=== PATIENT | male | born 1945 | race Caucasian/White ===

== ENCOUNTER → 2020-03-20 | Outpatient (CLI) | payer MEDICARE ==
--- NOTE | 2020-03-20 11:45 | KCIC ---
CERVICAL SPINE WO CONTRAST DATE: 03/20/2020 10:15 AM INDICATION: Cervical stenosis. New onset of BUE numbness after a fell 10 days ago. TECHNIQUE: Multiplanar multisequence magnetic resonance imaging of the cervical spine was performed without administration of intravenous contrast using the standard cervical spine protocol. COMPARISON: None. FINDINGS: The cervical spine is normally aligned. Partial osseous fusion of C1 and C2. No acute fracture. Mild multilevel degenerative disc desiccation and disc height loss. No marrow replacing process to suggest malignancy. Ill-defined T2/STIR hyperintense spinal cord signal at C3-4. On the limited views of the cranial cavity and brain, the cerebellum and klaudia have normal morphology and signal characteristics. No Chiari malformation. No soft tissue abnormality. Normal signal voids are present in the vertebral arteries. C2-3: Moderate facet arthropathy. Moderate severe left neural foraminal narrowing. No spinal canal stenosis. C3-4: Disc osteophyte complex. Uncovertebral hypertrophy. Severe right and mild left facet arthropathy. Ligamentum flavum thickening. Severe spinal canal stenosis. Severe neuroforaminal narrowing. C4-5: Disc osteophyte complex. Uncovertebral hypertrophy. Severe right facet arthropathy with ankylosis across the facet joint. Moderate left facet arthropathy. Moderate right and severe left neural foraminal narrowing. No spinal canal stenosis. C5-6: Disc osteophyte complex. Uncovertebral hypertrophy. Severe facet arthropathy. Ligamentum flavum thickening. Moderate spinal canal stenosis. Mild right and severe left neural foraminal narrowing. C6-7: Disc osteophyte complex. Uncovertebral hypertrophy. Severe facet arthropathy. Moderate bilateral neural foraminal narrowing. No spinal canal stenosis. C7-T1: Disc osteophyte complex. Uncovertebral hypertrophy. Moderate facet arthropathy. Mild neural foraminal narrowing. Mild spinal canal stenosis. IMPRESSION: Severe spinal canal stenosis at C3-4 with abnormal spinal cord signal, likely representing edema and/or myelomalacia. Advanced degenerative changes at the remaining levels as detailed above. Findings were discussed with nurse Lomeli at Dr. Garcia's office at 11:40 AM on 03/20/2020 FOR INTERNAL CODING PURPOSES RESULT CODE: (C) Electronically signed by: Brandt Beard MD (03/20/2020 11:41 AM) [id number]
== END | disposition home or self-care (01) ==
LOC: KCIC MRI 09:21
PROVIDERS: ATTEND Neurological Surgery
DX: M47.813 Spondylosis without myelopathy or radiculopathy, cervicothoracic region (principal); M50.31 Other cervical disc degeneration, high cervical region; M25.78 Osteophyte, vertebrae; M48.03 Spinal stenosis, cervicothoracic region
CPT/HCPCS: 72141

== ENCOUNTER → 2020-04-06 | Outpatient (CLI) | payer MEDICARE ==
[~2020-04-06] MED LIST: ASPI-630 PO; CETI10TA16 PO; ESOM40CA PO; GLIM1TAB PO; HYDR-2761 PO; INFL100V IV; LEFL10TA13 PO; LISI-130 PO; METF10007 PO; METH454P2 PO; METH750T2 PO; MULT-245 PO; OMEG100021 PO
[2020-04-06 16:25] LABS: BASO # 0.1 x10^3/uL (0.0-0.2); BASO % 1 % (0-3); EOS # 0.2 x10^3/uL (0.0-0.7); EOS % 3 % (0-3); HEMATOCRIT 42.7 % (39.0-53.0); HEMOGLOBIN 14.6 g/dL (13.0-17.5); LYMPH # 1.6 x10^3/uL (1.0-4.8); LYMPH % 23 % (24-48); MEAN CORPUSCULAR HEMOGLOBIN 29 pg (25-35); MEAN CORPUSCULAR HGB CONC 34 g/dL (31-37); MEAN CORPUSCULAR VOLUME 85 fL (79-100); MONO # 0.9 x10^3/uL (0.0-1.1); MONO % 13 % (0-9); NEUT # 4.1 x10^3/uL (1.8-7.7); NEUT % 60 % (31-73); PLATELET COUNT 203 x10^3/uL (140-400); RED CELL DISTRIBUTION WIDTH 14.6 % (11.5-14.5); WHITE BLOOD COUNT 6.9 x10^3/uL (4.0-11.0)
[2020-04-06 16:50] LABS: ALBUMIN 3.8 g/dL (3.4-5.0); ALBUMIN/GLOBULIN RATIO 0.9 (1.0-1.7); CALCIUM 9.1 mg/dL (8.5-10.1); CREATININE 0.8 mg/dL (0.7-1.3); POTASSIUM 4.3 mmol/L (3.5-5.1); TOTAL BILIRUBIN 0.4 mg/dL (0.2-1.0); TOTAL PROTEIN 8.1 g/dL (6.4-8.2)
[2020-04-07 01:09] LABS: HEMOGLOBIN A1C 5.9 % (4.8-5.6)
== END | disposition home or self-care (01) ==
LOC: SURGPAT 13:15
PROVIDERS: ATTEND Neurological Surgery
DX: Z01.812 Encounter for preprocedural laboratory examination (principal); Z11.59 Encounter for screening for other viral diseases; M48.02 Spinal stenosis, cervical region; Z88.8 Allergy status to other drugs, medicaments and biological substances; M47.12 Other spondylosis with myelopathy, cervical region; E11.9 Type 2 diabetes mellitus without complications
CPT/HCPCS: 36415; 80053; 83036; 85025; 87641; U0003

== ENCOUNTER 2020-04-10 07:00 | Inpatient (IN) | payer MEDICARE ==
--- NOTE | 2020-04-09 15:30 | PREOP HP ---
DATE OF SERVICE: 04/10/2020 PREOPERATIVE HISTORY AND PHYSICAL DATE OF SURGERY: 04/10/2020. HISTORY OF PRESENT ILLNESS: The patient is a pleasant 74-year-old, who presented with problems in his lower back and also demonstrated unsteadiness as well as numbness in his arms and hands. He reported falls. The problem began about 2 months ago and is becoming more and more severe. Standing and walking increases it and states that he is using a cane and/or a walker to help him. When I saw him last, I ordered a cervical MRI scan. PAST MEDICAL HISTORY: Arthritis, artificial knee, hypertension, rheumatoid arthritis, diabetes. PAST SURGICAL HISTORY: Lumbar surgery L4-L5, 08/2000; knee replacement, 2004. FAMILY HISTORY: Brain tumor, cancer, diabetes, hypertension, spine problems. SOCIAL HISTORY: Retired. . Walks for exercise. Denies tobacco use. Denies alcohol or tobacco use. Drinks coffee daily. ALLERGIES: PREDNISONE. CURRENT MEDICATIONS: Amaryl, aspirin, cetirizine, fiber, fish oil, leflunomide, lisinopril, metformin, multivitamin, Nexium, red yeast rice, Remicade, ibuprofen. REVIEW OF SYSTEMS: A 12-point review of systems was obtained and is noncontributory except for that mentioned above. PHYSICAL EXAMINATION: NEUROSURGERY EXAMINATION: GENERAL APPEARANCE: Alert, pleasant, no acute distress. HEAD: Normocephalic and atraumatic. SKIN: Warm and dry. NECK AND THYROID: Zphi-zl-dlwcqltn tenderness with palpation of posterior cervical region. SKIN: Warm and dry. MUSCULOSKELETAL: Cervical paraspinal muscle bulk is normal, restricted range of motion of the cervical spine, normal range of motion of the upper extremities bilaterally. EXTREMITIES: No clubbing, cyanosis, or edema. NEUROLOGIC: Alert and oriented x 3, normal recent and remote memory, strength 5/5 in bilateral upper extremities, unsteady gait. IMAGING: I reviewed a cervical MRI scan from 03/20/2020. On that study, the principal abnormalities are at C3-C4. There is severe spinal stenosis. There is more moderate stenosis present at C5-C6. There does appear to be abnormal signal within the spinal cord, suggesting edema or myelomalacia at C3-C4. ASSESSMENT: Spinal stenosis, cervical region. PLAN: The patient is developing a cervical myelopathy. He has severe spinal canal stenosis at C3-C4. I recommended an anterior cervical discectomy and fusion. I discussed this with him and his and that the problems as well as the surgery and expected postoperative course. I outlined the risks of anterior neck surgery and sequelae of injury to soft tissue structures. I spoke about the expected postoperative course. He understands. He would like to go ahead. We will make the arrangements. GAEL KELLY MD DR: ANOOP/doug JOB#: [id number] / [id number] JULIA
[2020-04-10] VITALS (9 sets, daily range): BP systolic 124–168; BP diastolic 56–80
[~2020-04-10] VITALS: Ht 182.9 cm; Wt 85.0 kg
[~2020-04-10 07:00] MED LIST changes: +BACITRACIN 50,000 UNIT in IV NORMAL SALINE 1000ML BAG 1,000 ML IRR ONE; -HYDR-2761 PO; +IV RINGERS,LACTATED 1000ML 1,000 ML IV SCH; -METH750T2 PO
[2020-04-10] MEDS ORDERED: BUPIVACAINE-EPI 0.5%-1:200000 MPF 30 ML VIAL. ONE (07:21)
[2020-04-10] MEDS ORDERED: GELATIN SPONGE SIZE 100. ONE (07:21)
[2020-04-10] MEDS ORDERED: THROMBIN TOPICAL 20,000 UNIT SPRAY.SYRN KIT TP ONE (07:22)
[2020-04-10] MEDS ORDERED: PHENYLEPHRINE 10 MG/ML VIAL. ONE ×3 (07:41→08:51)
[2020-04-10] MEDS ORDERED: DEXAMETHASONE SOD PHOS 4 MG/ML VIAL ONE ×2 (07:41→09:20)
[2020-04-10] MEDS ORDERED: PROPOFOL 50 ML IV ONE ×2 (07:41→09:27)
[2020-04-10] MEDS ORDERED: PROPOFOL 10 MG/ML (20ML) VIAL. IV ONE (07:41)
[2020-04-10] MEDS ORDERED: SUCCINYLCHOLINE 200 MG/10 ML VIAL. ONE (07:41)
[2020-04-10] MEDS ORDERED: LIDOCAINE 2% PF 5 ML VIAL. ONE (07:41)
[2020-04-10] MEDS ORDERED: ONDANSETRON PF 4 MG/2 ML VIAL. ONE (07:41)
[2020-04-10] MEDS ORDERED: VANCOMYCIN 1GM IVPB FOR OMNI 250 ML IV ONE (07:45)
[2020-04-10] MEDS: INSULIN LISPRO 100 UNIT/ML 3ML VIAL for OP,RR ONLY. SQ PRN ×2 (07:46→12:19)
[2020-04-10] MEDS ORDERED: 0.9 % SODIUM CHLORIDE 20 ML VIAL. IJ ONE ×2 (07:48)
[2020-04-10] MEDS ORDERED: REMIFENTANIL 2 MG VIAL. IV ONE (07:51)
[2020-04-10] MEDS ORDERED: INSULIN LISPRO 100 UNIT/ML 3ML VIAL for OP,RR ONLY. SQ ONE (08:00)
[2020-04-10] MEDS ORDERED: MIDAZOLAM HCL/PF 2 MG/2 ML VIAL. ONE (08:14)
[2020-04-10] MEDS ORDERED: KETAMINE HCL IN NACL, ISO-OSM 50 MG/5 ML SYRINGE ONE (08:50)
[2020-04-10] MEDS ORDERED: ePHEDrine PF IN SALINE 50 MG/10 ML SYRINGE. IV ONE (09:10)
[2020-04-10] MEDS ORDERED: DESFLURANE > 120 MINUTES IH ONE (09:20)
[2020-04-10] MEDS ORDERED: fentaNYL PF VIAL 100 MCG/2 ML VIAL ONE (11:42)
[2020-04-10] MEDS: POTASSIUM CL 20MEQ-0.45% NACL 1,000 ML IV SCH (11:56)
[2020-04-10] MEDS ORDERED: MAGNESIUM HYDROXIDE 2,400 MG/30 ML ORAL.SUSP. PO PRN (12:00)
[2020-04-10] MEDS ORDERED: METHOCARBAMOL 750 MG TABLET PO PRN (12:00)
[2020-04-10] MEDS ORDERED: MORPHINE SULFATE 2 MG/ML VIAL. IV PRN (12:00)
[2020-04-10] MEDS ORDERED: ONDANSETRON PF 4 MG/2 ML VIAL. IVP PRN (12:00)
[2020-04-10] MEDS ORDERED: HYDROmorphone 2 MG/ML VIAL IV PRN (12:00)
[2020-04-10] MEDS ORDERED: 0.9 % SODIUM CHLORIDE 10 ML DISP.SYRIN. IV PRN (12:00)
[2020-04-10] MEDS ORDERED: DEXTROSE 50% 25 GM / 50ML DISP.SYRIN. IV PRN (12:00)
[2020-04-10] MEDS ORDERED: CALCIUM CARBONATE 500 MG TAB.CHEW PO PRN (12:00)
[2020-04-10] MEDS ORDERED: NALOXONE 0.4 MG/ML VIAL. IV PRN (12:00)
[2020-04-10] MEDS ORDERED: diphenhydrAMINE HCL 25 MG CAPSULE PO PRN (12:00)
[2020-04-10] MEDS ORDERED: fentaNYL PF VIAL 100 MCG/2 ML VIAL IV PRN ×2 (12:00)
[2020-04-10] MEDS ORDERED: fentaNYL PF VIAL 100 MCG/2 ML VIAL IVP PRN (12:00)
[2020-04-10] MEDS ORDERED: ACETAMINOPHEN 325 MG TABLET. PO PRN (12:00)
[2020-04-10] MEDS ORDERED: HYDROcodone/APAP 5/325MG 1 TAB TABLET PO PRN ×2 (12:00)
[2020-04-10] MEDS ORDERED: MAG HYDROX/ALUMINUM HYD/SIMETH 30 ML ORAL.SUSP PO PRN (12:00)
[2020-04-10] MEDS ORDERED: PROCHLORPERAZINE 10 MG/2 ML VIAL. IV PRN (12:00)
--- NOTE | 2020-04-10 12:15 | OP ---
DATE OF SURGERY: 04/10/2020 PREOPERATIVE DIAGNOSES: Severe cervical spinal stenosis, cervical myelopathy, C3-C4. POSTOPERATIVE DIAGNOSIS: Severe cervical spinal stenosis, cervical myelopathy, C3-C4. OPERATION PERFORMED: Anterior cervical microdiscectomy, C3-C4; anterior cervical interbody fusion, C3-C4 with allograft and autograft bone; anterior cervical plate, C3-C4. The operation was done with multimodality monitoring, including EMG, SSEP, fluoroscopy, microscopic dissection as well as NIMS monitoring. SURGEON: Yaniv Kelly M.D. JUNK DEALER: MUSTAPHA Courtney, assisted with the surgery. She assisted with the exposure, the microdiscectomy as well as the closure. OPERATIVE INDICATIONS: The patient is a very pleasant 74-year-old man, who has developed intractable pain in his neck, shoulders and arms along with clumsiness and loss of function in his hands and unsteadiness of gait on imaging studies. He did have stenosis in the mid and lower cervical spine, but there was extremely severe stenosis at C3-C4. I felt that that area best be treated with an anterior cervical microdiscectomy and fusion. I spoke with him about the surgery and risks. He understood the surgery. He understood the technique. He understood the expected postoperative course. He wished to go ahead. DESCRIPTION OF PROCEDURE: Following general endotracheal anesthesia, the patient was positioned supine on the operating room table. The anterior cervical region was prepped and draped in the standard fashion. NATHAN hose and AV impulse boots were applied for DVT prophylaxis. A microscope was draped. Fluoroscopy was draped and brought into field. Monitoring was established. Ancef 2 grams was given about 30 minutes prior to surgery using fluoroscopic guidance. An incision was made from the midline around to the right side and a skin crease. I dissected down through skin and subcutaneous tissue. I dissected sharply through the platysma and then around the medial aspect of the sternocleidomastoid and carotid artery sheath down the anterior cervical vertebral bodies. I reflected the trachea and esophagus contralaterally. I placed a cervical disc retractors, wedged in the longus colli muscle. I placed 14-mm pins in C3 and C4, distracted the disc space and I confirmed my position fluoroscopically. I brought the microscope during this time. The remainder of the surgery done with the microscope using microscopic technique. I incised the anterior annulus. I performed discectomy with pituitary rongeurs. I drilled away some of the large bone spurring anteriorly and then removed the disc and drilled the posterior spurring. The disc immediately began to bulge back into the exposure after I opened the ligament. I worked inferiorly and drilled away the superior portion of the C4 posteriorly to allow excellent access to the disc, which I then in a piecemeal fashion removed. I opened the ligament widely bilaterally, I assured myself that the foramina were open. I worked carefully and scraped the cartilaginous endplate. I had an excellent decompression. I placed small pieces of Gelfoam in each lateral gutter, but hemostasis was perfect. I irrigated with copiously, I measured and placed an 8-mm interbody fusion cage, which was packed with allograft and autograft bone. I placed an anterior 12-mm plate using the [employer] system and four 14-mm screws. I removed the retractors. I Valsalva'd the patient. I assured myself of perfect hemostasis. I did take fluoroscopic images, which I felt were good. I irrigated again. I closed the platysma with absorbable suture, subcutaneous tissue as well I closed with interrupted absorbable sutures and skin was closed with a 4-0 subcuticular stitch. The operation went very well and the patient awakened uneventfully and taken to recovery room in excellent condition. I was quite pleased with the surgery. YANIV KELLY MD DR: ANOOP/doug JOB#: [id number] / [id number] JULIA
--- NOTE | 2020-04-10 12:55 | NUR ---
ARRIVED TO UNIT BY BED FROM PACU. ALERT AND ORIENTED X'S 4. NO C/O PAIN. DRESSING ANTERIOR NECK IS INTACT WITH SOME SHADOWING AND WITH SOFT COLLAR. IVF'S INTACT AND INFUSING. NATHAN'S AND ALIX'S ON BILATERALLY. MOVES ALL EXTREMITIES WITH NO PAIN OR NUMBNESS. ORIENTED TO ROOM AND CONTROLS. SIDE RAILS UP X'S 2 WITH CALL LIGHT IN REACH. AT BEDSIDE. CONT. MONITOR.
[2020-04-10] MEDS: MULTIVITAMIN with MINERAL TABLET. PO SCH (14:00)
[2020-04-10] MEDS: OMEGA-3 FATTY ACIDS/FISH OIL 1,000 MG CAPSULE. PO SCH (14:00)
[2020-04-10] MEDS: LISINOPRIL 20 MG TABLET PO SCH (14:59)
[2020-04-10] MEDS: ASPIRIN CHEWABLE 81 MG TABLET. PO SCH (14:59)
[2020-04-10] MEDS: LEFLUNOMIDE 10 MG TABLET. PO SCH (14:59)
[2020-04-10] MEDS: CETIRIZINE HCL 10 MG TABLET. PO SCH (15:00)
[2020-04-10] MEDS: PANTOPRAZOLE 40 MG TABLET.DR. PO SCH (17:44)
[2020-04-10] MEDS: metFORMIN 500 MG TABLET PO SCH (17:44)
[2020-04-10] MEDS: GLIMEPIRIDE 2 MG TABLET. PO SCH (17:44)
[2020-04-10] MEDS: ceFAZolin SODIUM IV Push 1 GM VIAL. IVP SCH ×2 (17:45→21:36)
[2020-04-10] MEDS: DOCUSATE SODIUM 100 MG CAPSULE. PO SCH (21:37)
[2020-04-11] MEDS: POTASSIUM CL 20MEQ-0.45% NACL 1,000 ML IV SCH (01:16)
[2020-04-11 03:00] VITALS: BP 135/61
[2020-04-11] MEDS: ceFAZolin SODIUM IV Push 1 GM VIAL. IVP SCH (06:06)
[2020-04-11] MEDS: PANTOPRAZOLE 40 MG TABLET.DR. PO SCH (06:06)
[2020-04-11 07:00] VITALS: BP 130/64
[2020-04-11] MEDS: ASPIRIN CHEWABLE 81 MG TABLET. PO SCH (08:52)
[2020-04-11] MEDS: metFORMIN 500 MG TABLET PO SCH (08:52)
[2020-04-11] MEDS: OMEGA-3 FATTY ACIDS/FISH OIL 1,000 MG CAPSULE. PO SCH (08:53)
[2020-04-11] MEDS: LISINOPRIL 20 MG TABLET PO SCH (08:53)
[2020-04-11] MEDS: MULTIVITAMIN with MINERAL TABLET. PO SCH (08:53)
[2020-04-11] MEDS: CETIRIZINE HCL 10 MG TABLET. PO SCH (08:53)
[2020-04-11] MEDS: GLIMEPIRIDE 2 MG TABLET. PO SCH (08:54)
[2020-04-11] MEDS: LEFLUNOMIDE 10 MG TABLET. PO SCH (08:55)
[2020-04-11] MEDS: DOCUSATE SODIUM 100 MG CAPSULE. PO SCH (09:00)
[2020-04-11] MEDS ORDERED: HYDR-2761 PO (10:34)
[2020-04-11] MEDS ORDERED: METH750T2 PO (10:34)
--- NOTE | 2020-04-11 10:36 | DISCH ---
DISCHARGE INSTRUCTIONS Condition on Discharge Condition on Discharge: Stable Activity After Discharge Activity Instructions for Disc: Activity as tolerated, Avoid exertion Other activity instructions: soft collar for comfort Bathing Instructions: Shower-keep dressing dry Lifting Instructions after Dis: No heavy lifting, No pulling or pushing, Do not lift >10 pounds Driving Instructions after Dis: Do not drive Diet after Discharge Additional Diet Restrictions: resume home diet, soft Wound Incision Care Wound/Incision Care: Ice to area for comfort Other wound/incision instructi: may remove dressing in 48 hours, no soaking Contacting the DRZane after DC Call your doctor for: Concerns you may have Follow-Up Follow up with: Dr. Kelly's nurse in 2 weeks [phone] GAEL KELLY MD Apr 11, 2020 10:36
[2020-04-11 11:00] VITALS: BP 132/58
[2020-04-11] MEDS ORDERED: PSYLLIUM HUSK (SUGAR FREE) 1 PKT PACKET PO SCH (21:00)
--- NOTE | 2020-04-13 19:07 | PATHOLOGY ---
[facility] Accession Number: [id number] . 01 Material submitted: . vertebral column - CERVICAL DISC . 01 Clinical history: . Cervical stenosis; spondylosis with myelopathy . 02 Diagnosis: Segments of cartilaginous tissue and bone, cervical disc: - Degenerative changes of cartilaginous tissue. . (JPM:mm; 04/13/2020) [facility] 04/13/2020 1759 Local . 02 Comment: There is no evidence of an acute inflammatory process or malignancy. . (JPM:mm; 04/13/2020) . 02 Electronically signed: . Rusty Graves MD, Pathologist NPI- [id number] . 01 Gross description: . The specimen is received in formalin, labeled "Melecio Nash, cervical disc". Received are multiple segments of pink-knight fibrous, gritty tissue admixed with minute fragments of bone measuring 3.8 x 2.2 x 0.5 cm in aggregate dimensions. The specimen is submitted representatively in cassette A1, following light decalcification. ([facility]; 04/10/2020) [facility] 04/10/2020 1652 Local . 02 Pathologist provided ICD-10: M99.71, M47.10 . 02 CPT . 774936, 113183 Specimen Comment: A courtesy copy of this report has been sent to [phone] Specimen Comment: [id number] Specimen Comment: Report sent to / DR SABILLON Performed at: 01 [facility] [address], [place], [place] [id number] MD Samy Dominguez MD Phone: [phone] Performed at: 02 [facility] [address] [place], [place] [id number] MD Rusty Graves MD Phone: [phone]
== END 2020-04-11 12:25 | disposition home or self-care (01) | DRG 472 ==
LOC: OPSVCIP 07:00 → 4 NORTH 12:57
PROVIDERS: ADMIT Neurological Surgery; ATTEND Neurological Surgery
PROC: 0RB30ZZ Excision of Cervical Vertebral Disc, Open Approach (ICD-10-PCS; 2020-04-10)
PROC: 4A11X4G Monitoring of Peripheral Nervous Electrical Activity, Intraoperative, External Approach (ICD-10-PCS; 2020-04-10)
PROC: 00NW0ZZ Release Cervical Spinal Cord, Open Approach (ICD-10-PCS; 2020-04-10)
PROC: 0RG10A0 Fusion of Cervical Vertebral Joint with Interbody Fusion Device, Anterior Approach, Anterior Column, Open Approach (ICD-10-PCS; principal; 2020-04-10 08:30)
DX: M48.02 Spinal stenosis, cervical region (principal); G99.2 Myelopathy in diseases classified elsewhere; E11.9 Type 2 diabetes mellitus without complications; I10 Essential (primary) hypertension; M06.9 Rheumatoid arthritis, unspecified; Z96.659 Presence of unspecified artificial knee joint; Z82.49 Family history of ischemic heart disease and other diseases of the circulatory system; Z83.3 Family history of diabetes mellitus; Z88.8 Allergy status to other drugs, medicaments and biological substances
CPT/HCPCS: 76000; 82962; 88304; 88311; A7015; C1713; J0330; J0690; J1100; J1815; J2250; J2370; J2405; J2704; J3010; J7030; J7120; 97116-GP; C1776; G0378

== ENCOUNTER → 2020-06-09 | Outpatient (CLI) | payer MEDICARE ==
[~2020-06-09] MED LIST changes: -BACITRACIN 50,000 UNIT in IV NORMAL SALINE 1000ML BAG 1,000 ML IRR ONE; +HYDR-2761 PO; -IV RINGERS,LACTATED 1000ML 1,000 ML IV SCH; +METH750T2 PO
--- NOTE | 2020-06-09 15:17 | KCIC ---
LUMBAR SPINE 2-3V History: Lumbar stenosis, bilateral leg weakness and numbness, recent fall Comparison: None. Findings: 2 views of the lumbar spine are submitted. There is intact posterolateral fusion hardware at L3-4 at which there are bilateral pedicle screws attached to vertical rods, also horizontal bar. Lumbar vertebral body stature is maintained. There is very mild grade 1 anterior spondylolisthesis L4-5. There is fairly severe degenerative disc disease at L4-5 and to a somewhat lesser degree at L5-S1, also spondylosis greatest of these the same levels. There is mild spondylosis at L2-3. There is multilevel lumbar facet degenerative change, also likely posterior arthrodesis L3-4. There is also spondylosis of visualized inferior thoracic levels. There is very mild lumbar dextroscoliosis. There is likely small right renal calculus. There is scattered plaque of the abdominal aorta. Impression: 1. There is intact posterolateral fusion hardware L3-4. There is degenerative disc disease and spondylosis greatest at L4-5 and L5-S1. There is multilevel lumbar facet degenerative change. 2. There is likely small right renal calculus. Electronically signed by: Brandt Clayton MD (06/09/2020 3:15 PM) [id number]
== END ==
LOC: KCIC 14:39
PROVIDERS: ATTEND Neurological Surgery
DX: M47.817 Spondylosis without myelopathy or radiculopathy, lumbosacral region (principal); M51.37 Other intervertebral disc degeneration, lumbosacral region; M43.26 Fusion of spine, lumbar region; I70.0 Atherosclerosis of aorta; M48.061 Spinal stenosis, lumbar region without neurogenic claudication
CPT/HCPCS: 72100

== ENCOUNTER → 2020-07-06 | Outpatient (CLI) | payer MEDICARE ==
[~2020-07-06] MED LIST changes: +DOCU-153 PO; +LEFL10TA14 PO; +OXYC1TAB15 PO
[2020-07-06 11:05] LABS: BASO # 0.1 x10^3/uL (0.0-0.2); BASO % 1 % (0-3); EOS # 0.2 x10^3/uL (0.0-0.7); EOS % 3 % (0-3); HEMATOCRIT 42.7 % (39.0-53.0); HEMOGLOBIN 14.4 g/dL (13.0-17.5); LYMPH # 1.5 x10^3/uL (1.0-4.8); LYMPH % 25 % (24-48); MEAN CORPUSCULAR HEMOGLOBIN 29 pg (25-35); MEAN CORPUSCULAR HGB CONC 34 g/dL (31-37); MEAN CORPUSCULAR VOLUME 85 fL (79-100); MONO # 0.5 x10^3/uL (0.0-1.1); MONO % 8 % (0-9); NEUT % 63 % (31-73); PLATELET COUNT 218 x10^3/uL (140-400); RED BLOOD COUNT 5.02 x10^6/uL (4.30-5.70); RED CELL DISTRIBUTION WIDTH 15.6 % (11.5-14.5); WHITE BLOOD COUNT 6.3 x10^3/uL (4.0-11.0)
[2020-07-06 11:16] LABS: ALBUMIN 3.7 g/dL (3.4-5.0); CALCIUM 8.8 mg/dL (8.5-10.1); CREATININE 0.9 mg/dL (0.7-1.3); GFR 81.8; POTASSIUM 4.5 mmol/L (3.5-5.1); TOTAL BILIRUBIN 0.3 mg/dL (0.2-1.0); TOTAL PROTEIN 7.5 g/dL (6.4-8.2)
[2020-07-06 11:22] LABS: PROTHROMBIN TIME PATIENT 13.1 SEC (11.7-14.0)
--- NOTE | 2020-07-07 10:22 | EKG ---
[facility] [address] [place] [address] Test Date: 2020-07-06 Test Time: 11:13:54 Pat Name: VICTORIANO JACOB Department: Room: Gender: M Investigations Consultant: SUE Neves : 1945 Requested By: GAEL KELLY Order Number: [id number] Reading MD: Evans Zhagn MD Measurements Intervals Ethel Rate: 73 P: 0 DC: 140 QRS: 40 QRSD: 78 T: 51 QT: 374 QTc: 416 Interpretive Statements SINUS RHYTHM Electronically Signed On 07-07-2020 11:17:17 CERTIFIED MEDICAL DOSIMETRIST by Evans Zhang MD
== END ==
LOC: SURGPAT 09:43
PROVIDERS: ATTEND Neurological Surgery
DX: Z01.818 Encounter for other preprocedural examination (principal); M48.061 Spinal stenosis, lumbar region without neurogenic claudication; Z98.1 Arthrodesis status; Z20.828 Contact with and (suspected) exposure to other viral communicable diseases
CPT/HCPCS: 80053; 85025; 85610; 85730; 87641; 93005; U0003

== ENCOUNTER → 2020-09-22 | Outpatient (CLI) | payer MEDICARE ==
[2020-07-10 13:05] VITALS: BP 130/62
[~2020-09-22] MED LIST changes: +METH-562 PO; -METH750T2 PO
--- NOTE | 2020-09-22 17:21 | KCIC ---
XR LUMBAR SPINE 2-3V History: Reason: S/P lumbar fusion June 2020. / Spl. Instructions: / History: Technique: 2 views lumbar spine. Comparison: June 09, 2020 Findings: Posterior stabilization L2-L4. Posterior decompression L2-L4. Lateral mass fusion. Possible lucency s urrounding the L2 pedicle screws. Multilevel degenerative disc changes most prominent L4-5 and L5-S1. Lower lumbar facet arthropathy. N ormal vertebral body height. No acute fracture. Vascular calcifications. Surgical clips right upper q uadrant. Impression: 1. Posterior stabilization L2-L4 with possible lucency surrounding the L2 pedicle screws, may indica te loosening. CT can further evaluate if indicated. 2. Multilevel lumbar spondylosis most prominent L4-5 and L5-S1. Electronically signed by: Pedro Thao DO (09/22/2020 5:19 PM) [id number]
== END ==
LOC: KCIC 11:07
PROVIDERS: ATTEND Neurological Surgery
DX: M47.817 Spondylosis without myelopathy or radiculopathy, lumbosacral region (principal); M43.26 Fusion of spine, lumbar region
CPT/HCPCS: 72100